=== PATIENT | male | born 1990 | race Caucasian/White ===

== ENCOUNTER 2024-11-17 18:35 | Emergency (ER) | payer OTHER, SELFPAY ==
[2024-11-17] VITALS (32 sets, daily range): BP systolic 124–144; BP diastolic 89–110; PULSE 59–63; TEMP 36.9; O2SAT 96–100; BMI 17.2
--- NOTE | 2024-11-17 19:12 | ED_ITS ---
Documented by User: [email or web address] Rangel 11/17/24 21:50 HPI HPI - General Adult General Chief complaint: Abdominal Pain Stated complaint: ABDOMINAL PAIN, WEAKNESS, TROUBLE EATING Time Seen by Provider: 11/17/24 18:46 Source: patient Mode of arrival: walk-in Limitations: no limitations History of Present Illness HPI narrative: Patient is a 34-year-old male who presents to the emergency department for evaluation of nausea, vomiting, epigastric abdominal discomfort, dizziness and unintentional weight loss for the last 2 to 3 days. He states he has lost over 40 pounds in the last year without intention, he was recently incarcerated. He denies any previous abdominal surgeries. No recent antibiotics or travel. He denies any diarrhea and states he is having normal bowel movements. No fevers. He has had mild cough. No medications taken prior to arrival Related Data Previous Rx's ?Medication ?Instructions ?Recorded ondansetron 4 mg disintegrating 4 mg PO Q6H PRN nausea and 11/17/24 tablet vomiting #12 tabs pantoprazole 40 mg tablet,delayed 40 mg PO DAILY #7 ta bs 11/17/24 release (Protonix) Allergies Allergy/AdvReac Type Severity Reaction Status Date / Time No Known Drug Allergies Allergy Verified 11/17/24 18:55 Opioid HPI Opioid Management Most Recent Opioid Data: Last Pain Scale 5 11/17/24, 19:52 Last ED Pain Assessment 11/17/24, 19:52 Review of Systems ROS Constitutional Denies: fever or chills Ears, nose, mouth, and throat Denies: throat pain or nasal congestion Cardiovascular Denies: chest pain Respiratory Reports: cough; Denies: shortness of breath Gastrointestinal Reports: abdominal pain, nausea and vomiting; Denies: diarrhea Musculoskeletal Denies: back pain Integumentary/Breast Denies: rash Neurological Denies: numbness in extremities or weakness in extremities Hematologic/Lymphatic Denies: easy bruising or easy bleeding PFSH PFSH Social History Little interest or pleasure in doing things: not at all Feeling down, depressed, or hopeless: not at all Exam Narrative Exam Narrative: Gen.: Awake, alert, in no distress Head: Normocephalic, atraumatic ENT: Moist mucous membranes Respiratory: No respiratory distress, lungs clear bilaterally Cardio: Regular rate and rhythm Gastrointestinal: Abdomen is soft, nondistended and nontender to palpation, no guarding or rebound Extremities: Moves extremities equally, no injuries noted Psych: Normal mood and affect Neuro: No focal neuro deficit Skin: Warm, dry, intact Constitutional Vital Signs, click to edit/add: Last Vital Signs Temp 98.5 F 11/17/24 18:56 Pulse 63 11/17/24 22:06 Resp 18 11/17/24 22:06 BP 144/98 H 11/17/24 23:30 Pulse Ox 99 11/17/24 23:40 O2 Del Method Room Air 11/17/24 18:56 Course Vital Signs Vital signs: Vital Signs Temperature 98.5 F 11/17/24 18:56 Pulse Rate 59 L 11/17/24 18:56 Respiratory Rate 18 11/17/24 18:56 Blood Pressure 140/110 H 11/17/24 18:56 Pulse Oximetry 98 11/17/24 18:56 Oxygen Delivery Method Room Air 11/17/24 18:56 Temperature 98.5 F 11/17/24 18:56 Pulse Rate 63 11/17/24 22:06 Respiratory Rate 18 11/17/24 22:06 Blood Pressure 144/98 H 11/17/24 23:30 Pulse Oximetry 99 11/17/24 23:40 Oxygen Delivery Method Room Air 11/17/24 18:56 Medical Decision Making MDM Narrative Medical decision making narrative: 2148: Patient medicated with IV fluids, Zofran, Protonix. Chest x-ray, lab studies and CT of the abdomen and pelvis are unremarkable. Bilirubin was minimally elevated so the patient had an ultrasound of the right upper quadrant. Ultrasound is pending at this time and case is turned over to attending physician anticipating discharge home with PCP and GI referral. SHARED APC VISIT, PHYSICIAN ATTESTATION: [id number] I performed a substantive part of the MDM during the patient?s E/M visit. I personally evaluated and examined the patient. I personally made or approved the documented management plan and acknowledge its risk of complications. Medical Records Medical records reviewed: Yes I reviewed the patient's medical records Lab Data Lab results reviewed: Yes I reviewed the patient's lab results Labs: Lab Results 11/17/24 11/17/24 Range/Units 19:03 21:00 WBC 6.9 (4.0-11.0) 10^3/uL RBC 5.38 (4.70-6.10) 10^6/uL Hgb 16.4 (14.0-18.0) g/dL Hct 46.4 (42.0-54.0) % MCV 86.2 (80.0-94.0) fL MCH 30.5 (25.9-34.0) pg MCHC 35.3 H (29.9-35.2) g/dL RDW 11.7 (11.0-15.0) % Plt Count 303 (150-450) 10^3/uL MPV 8.3 L (9.5-13.5) fL Neut % (Auto) 61.2 (43.0-75.0) % Lymph % (Auto) 30.9 (20.5-60.0) % [place] % (Auto) 6.8 (1.7-12.0) % Eos % (Auto) 0.4 L (0.9-7.0) % Baso % (Auto) 0.6 (0.2-2.0) % Neut # (Auto) 4.2 (1.4-6.5) 10^3/uL Lymph # (Auto) 2.1 (1.2-3.8) 10^3/uL [place] # (Auto) 0.5 (0.3-0.8) 10^3/uL Eos # (Auto) 0.0 (0.0-0.7) 10^3/uL Baso # (Auto) 0.0 (0.0-0.1) 10^3/uL Abs Immat Gran (auto) 0.01 (0.00-0.03) 10^3/uL Imm/Tot Granulo (auto) 0.1 (0.0-0.5) % Sodium 137 (136-145) mmol/L Potassium 3.6 (3.5-5.1) mmol/L Chloride 99 (98-107) mmol/L Carbon Dioxide 31.2 (21.0-32.0) mmol/L Anion Gap 10.4 BUN 10.0 (7.0-18.0) mg/dL Creatinine 0.94 (0.70-1.30) mg/dL Est GFR ( Amer) >60 (>=60 mL/min/1.73m^2) Est GFR (Non-Af Amer) >60 (>=60 mL/min/1.73m^2) BUN/Creatinine Ratio 10.6 Glucose 84 (74-106) mg/dL Lactate 0.7 (0.4-2.0) mmol/L Calcium 9.3 (8.5-10.1) mg/dL Total Bilirubin 1.4 H (0.2-1.0) mg/dL AST 28 (15-37) U/L ALT 54 (16-63) U/L Alkaline Phosphatase 60 (46-116) U/L Troponin I High Sens 9.1 (4.0-76.1) pg/mL Total Protein 7.5 (6.4-8.2) g/dL Albumin 4.5 (3.4-5.0) g/dL Globulin 3.0 g/dL Albumin/Globulin Ratio 1.5 Lipase 26.0 (16.0-77.0) U/L Urine Color Lt. yellow (YELLOW) Urine Clarity Clear (CLEAR) Urine pH 6.5 (5.0-9.0) Ur Specific [place] <=1.005 A (1.005-1.025) Urine Protein Negative (NEG/TRACE) mg/dL Urine Glucose (UA) Negative (NEGATIVE) mg/dL Urine Ketones Negative (NEGATIVE) mg/dL Urine Occult Blood Negative (NEGATIVE) Urine Nitrite Negative (NEGATIVE) Urine Bilirubin Negative (NEGATIVE) Urine Urobilinogen 0.2 (0.2-1.0) EU/dL Ur Leukocyte Esterase Negative (NEGATIVE) Urine RBC None seen (0-2) #/HPF Urine WBC 0-2 A (NONE SEEN) #/HPF Ur Squamous Epith Cells Rare (NONE/RARE) #/LPF Urine Crystals None seen (None Seen) #/HPF Urine Bacteria Trace A (NONE SEEN) #/HPF Urine Casts None seen (NONE SEEN) #/LPF Urine Mucus None seen (NONE SEEN) Ur Culture Indicated? No Imaging Data Chest x-ray: Attestation: I have reviewed the pertinent imaging results. Radiologist's impression: NAD CT scan - abdomen: Attestation: I have reviewed the pertinent imaging results. Radiologist's impression: NAD Discharge Plan Discharge Chief Complaint: Abdominal Pain Clinical Impression: Abdominal pain, Nausea & vomiting, Unintentional weight loss Patient Disposition: Home, Self-Care Time of Disposition Decision: 23:28 Condition: Good Prescriptions / Home Meds: New pantoprazole [Protonix] 40 mg tablet,delayed release (DR/EC) 40 mg PO DAILY Qty: 7 0RF ondansetron 4 mg tablet,disintegrating 4 mg PO Q6H PRN (Reason: nausea and vomiting) Qty: 12 0RF Print Language: Estonian Instructions: Acute Nausea and Vomiting (DC), Acute Abdominal Pain (DC), Abdominal Pain (ED) Referrals: [facility] [Primary Care Provider, Unknown] - 1 week Ly,Hannah Steele DO [Physician] - 1 week Discharge Date/Time: 11/17/24 23:57 Documented by User: Kailey Cazares MD 11/18/24 01:20 HPI HPI - General Adult General Chief complaint: Abdominal Pain Stated complaint: ABDOMINAL PAIN, WEAKNESS, TROUBLE EATING Time Seen by Provider: 11/17/24 18:46 Related Data Previous Rx's ?Medication ?Instructions ?Recorded ondansetron 4 mg disintegrating 4 mg PO Q6H PRN nausea and 11/17/24 tablet vomiting #12 tabs pantoprazole 40 mg tablet,delayed 40 mg PO DAILY #7 ta bs 11/17/24 release (Protonix) Allergies Allergy/AdvReac Type Severity Reaction Status Date / Time No Known Drug Allergies Allergy Verified 11/17/24 18:55 Opioid HPI Opioid Management Most Recent Opioid Data: Last Pain Scale 5 11/17/24, 19:52 Last ED Pain Assessment 11/17/24, 19:52 PFSH PFSH Social History Little interest or pleasure in doing things: not at all Feeling down, depressed, or hopeless: not at all Exam Constitutional Vital Signs, click to edit/add: Last Vital Signs Temp 98.5 F 11/17/24 18:56 Pulse 63 11/17/24 22:06 Resp 18 11/17/24 22:06 BP 144/98 H 11/17/24 23:30 Pulse Ox 99 11/17/24 23:40 O2 Del Method Room Air 11/17/24 18:56 Course Vital Signs Vital signs: Vital Signs Temperature 98.5 F 11/17/24 18:56 Pulse Rate 59 L 11/17/24 18:56 Respiratory Rate 18 11/17/24 18:56 Blood Pressure 140/110 H 11/17/24 18:56 Pulse Oximetry 98 11/17/24 18:56 Oxygen Delivery Method Room Air 11/17/24 18:56 Temperature 98.5 F 11/17/24 18:56 Pulse Rate 63 11/17/24 22:06 Respiratory Rate 18 11/17/24 22:06 Blood Pressure 144/98 H 11/17/24 23:30 Pulse Oximetry 99 11/17/24 23:40 Oxygen Delivery Method Room Air 11/17/24 18:56 Medical Decision Making MDM Narrative Medical decision making narrative: 2148: Patient medicated with IV fluids, Zofran, Protonix. Chest x-ray, lab studies and CT of the abdomen and pelvis are unremarkable. Bilirubin was minimally elevated so the patient had an ultrasound of the right upper quadrant. Ultrasound is pending at this time and case is turned over to attending physician anticipating discharge home with PCP and GI referral. SHARED APC VISIT, PHYSICIAN ATTESTATION: [id number] I performed a substantive part of the MDM during the patient?s E/M visit. I per sonally evaluated and examined the patient. I personally made or approved the documented management plan and acknowledge its risk of complications. This patient was seen and evaluated in conjunction with the physician culture media laboratory assistant. He presents for evaluation of generalized abdominal pain with decreased appetite for solid food and some vomiting. He also complains of weight loss after being in residential. I reviewed his labs. He has a normal white count and hemoglobin. Electrolytes are normal. Liver function tests are normal with the exception of a mildly elevated bilirubin at 1.4. Lipase is normal, troponin is normal. X-ray of the chest is negative for acute findings. CT scan of the abdomen pelvis shows notable fluid-filled nondilated loops of small bowel with nonspecific but may be seen with enteritis and ultrasound of the gallbladder shows a small echogenic focus in the gallbladder that could represent a polyp but no features of cholecystitis no acute process seen in the visualized p ortions of the pancreas right kidney or liver with no free fluid in the right upper quadrant and normal common bile duct. The results of these findings and his labs were discussed with him. He is perplexed as to why he cannot eat any solid food at this time. I did explain to him that he may have a gastroenteritis causing his symptoms as he vomited the last time he ate. He will be given a Zofran to take home and prescriptions for Zofran and Protonix were forwarded to his pharmacy. Lab Data Labs: Lab Results 11/17/24 11/17/24 Range/Units 19:03 21:00 WBC 6.9 (4.0-11.0) 10^3/uL RBC 5.38 (4.70-6.10) 10^6/uL Hgb 16.4 (14.0-18.0) g/dL Hct 46.4 (42.0-54.0) % MCV 86.2 (80.0-94.0) fL MCH 30.5 (25.9-34.0) pg MCHC 35.3 H (29.9-35.2) g/dL RDW 11.7 (11.0-15.0) % Plt Count 303 (150-450) 10^3/uL MPV 8.3 L (9.5-13.5) fL Neut % (Auto) 61.2 (43.0-75.0) % Lymph % (Auto) 30.9 (20.5-60.0) % [place] % (Auto) 6.8 (1.7-12.0) % Eos % (Auto) 0.4 L (0.9-7.0) % Baso % (Auto) 0.6 (0.2-2.0) % Neut # (Auto) 4.2 (1.4-6.5) 10^3/uL Lymph # (Auto) 2.1 (1.2-3.8) 10^3/uL [place] # (Auto) 0.5 (0.3-0.8) 10^3/uL Eos # (Auto) 0.0 (0.0-0.7) 10^3/uL Baso # (Auto) 0.0 (0.0-0.1) 10^3/uL Abs Immat Gran (auto) 0.01 (0.00-0.03) 10^3/uL Imm/Tot Granulo (auto) 0.1 (0.0-0.5) % Sodium 137 (136-145) mmol/L Potassium 3.6 (3.5-5.1) mmol/L Chloride 99 (98-107) mmol/L Carbon Dioxide 31.2 (21.0-32.0) mmol/L Anion Gap 10.4 BUN 10.0 (7.0-18.0) mg/dL Creatinine 0.94 (0.70-1.30) mg/dL Est GFR ( Amer) >60 (>=60 mL/min/1.73m^2) Est GFR (Non-Af Amer) >60 (>=60 mL/min/1.73m^2) BUN/Creatinine Ratio 10.6 Glucose 84 (74-106) mg/dL Lactate 0.7 (0.4-2.0) mmol/L Calcium 9.3 (8.5-10.1) mg/dL Total Bilirubin 1.4 H (0.2-1.0) mg/dL AST 28 (15-37) U/L ALT 54 (16-63) U/L Alkaline Phosphatase 60 (46-116) U/L Troponin I High Sens 9.1 (4.0-76.1) pg/mL Total Protein 7.5 (6.4-8.2) g/dL Albumin 4.5 (3.4-5.0) g/dL Globulin 3.0 g/dL Albumin/Globulin Ratio 1.5 Lipase 26.0 (16.0-77.0) U/L Urine Color Lt. yellow (YELLOW) Urine Clarity Clear (CLEAR) Urine pH 6.5 (5.0-9.0) Ur Specific [place] <=1.005 A (1.005-1.025) Urine Protein Negative (NEG/TRACE) mg/dL Urine Glucose (UA) Negative (NEGATIVE) mg/dL Urine Ketones Negative (NEGATIVE) mg/dL Urine Occult Blood Negative (NEGATIVE) Urine Nitrite Negative (NEGATIVE) Urine Bilirubin Negative (NEGATIVE) Urine Urobilinogen 0.2 (0.2-1.0) EU/dL Ur Leukocyte Esterase Negative (NEGATIVE) Urine RBC None seen (0-2) #/HPF Urine WBC 0-2 A (NONE SEEN) #/HPF Ur Squamous Epith Cells Rare (NONE/RARE) #/LPF Urine Crystals None seen (None Seen) #/HPF Urine Bacteria Trace A (NONE SEEN) #/HPF Urine Casts None seen (NONE SEEN) #/LPF Urine Mucus None seen (NONE SEEN) Ur Culture Indicated? No Discharge Plan Discharge Chief Complaint: Abdominal Pain Clinical Impression: Abdominal pain, Nausea & vomiting, Unintentional weight loss Patient Disposition: Home, Self-Care Time of Disposition Decision: 23:28 Condition: Good Prescriptions / Home Meds: New pantoprazole [Protonix] 40 mg tablet,delayed release (DR/EC) 40 mg PO DAILY Qty: 7 0RF ondansetron 4 mg tablet,disintegrating 4 mg PO Q6H PRN (Reason: nausea and vomiting) Qty: 12 0RF Print Language: Estonian Instructions: Acute Nausea and Vomiting (DC), Acute Abdominal Pain (DC), Abdominal Pain (ED) Referrals: [facility] [Primary Care Provider, Unknown] - 1 week Hannah Giang DO [Physician] - 1 week Discharge Date/Time: 11/17/24 23:57
[2024-11-17] MEDS: 0.9 % SODIUM CHLORIDE 1,000 ML 999 ML IV (19:16)
[2024-11-17 19:17] LABS: Basophils Percent Auto 0.6 % (0.2-2.0); Eosinophils Percent Auto 0.4 % (0.9-7.0); Hematocrit 46.4 % (42.0-54.0); Hemoglobin 16.4 g/dL (14.0-18.0); Immature Granulocytes Abs Auto 0.01 10^3/uL (0.00-0.03); Immature Granulocytes Pct Auto 0.1 % (0.0-0.5); Lymphocytes Absolute Auto 2.1 10^3/uL (1.2-3.8); Lymphocytes Percent Auto 30.9 % (20.5-60.0); Mean Corpuscular HGB Conc 35.3 g/dL (29.9-35.2); Mean Corpuscular Hemoglobin 30.5 pg (25.9-34.0); Mean Corpuscular Volume 86.2 fL (80.0-94.0); Mean Platelet Volume 8.3 fL (9.5-13.5); Monocytes Absolute Auto 0.5 10^3/uL (0.3-0.8); Monocytes Percent Auto 6.8 % (1.7-12.0); Neutrophils Absolute Auto 4.2 10^3/uL (1.4-6.5); Neutrophils Percent Auto 61.2 % (43.0-75.0); Platelet Count 303 10^3/uL (150-450); Red Blood Count 5.38 10^6/uL (4.70-6.10); Red Cell Distribution Width 11.7 % (11.0-15.0); White Blood Count 6.9 10^3/uL (4.0-11.0)
[2024-11-17] MEDS: PANTOPRAZOLE SODIUM 40 MG VIAL IV (19:17)
[2024-11-17] MEDS: HYOSCYAMINE SULFATE 0.125 MG TAB.SUBL SL (19:17)
[2024-11-17] MEDS: ONDANSETRON PF 4 MG/2 ML VIAL IV (19:17)
[2024-11-17 19:34] LABS: Anion Gap 10.4
[2024-11-17 19:36] LABS: Alanine Aminotransferase 54 U/L (16-63); Albumin Globulin Ratio 1.5; Albumin Level 4.5 g/dL (3.4-5.0); Alkaline Phosphatase 60 U/L (46-116); Aspartate Amino Transferase 28 U/L (15-37); BUN Creatinine Ratio 10.6; Bilirubin Total 1.4 mg/dL (0.2-1.0); Calcium 9.3 mg/dL (8.5-10.1); Carbon Dioxide 31.2 mmol/L (21.0-32.0); Chloride 99 mmol/L (98-107); Estimated GFR (African America >60 (>=60 mL/min/1.73m^2); Estimated GFR (Non-African Ame >60 (>=60 mL/min/1.73m^2); Glucose 84 mg/dL (74-106); Lactate/Lactic Acid 0.7 mmol/L (0.4-2.0); Potassium 3.6 mmol/L (3.5-5.1); Sodium 137 mmol/L (136-145); Total Protein 7.5 g/dL (6.4-8.2); Troponin I High Sensitivity 9.1 pg/mL (4.0-76.1)
--- NOTE | 2024-11-17 20:34 | PC.NURSE ---
ultra sound tech in the room with this patient at this time
--- NOTE | 2024-11-17 20:52 | PC.NURSE ---
patient was unable to provide a urine sample
[2024-11-17 21:03] LABS: Bilirubin Urine NEGATIVE (NEGATIVE); Blood Urine NEGATIVE (NEGATIVE); Clarity Urine CLEAR (CLEAR); Color Urine LT. YELLOW (YELLOW); Glucose Urine UA NEGATIVE (NEGATIVE); Ketones Urine NEGATIVE (NEGATIVE); Leukocyte Esterase Urine NEGATIVE (NEGATIVE); Nitrite Urine NEGATIVE (NEGATIVE); Protein Urine NEGATIVE (NEG/TRACE); Specific Gravity Urine <=1.005 (1.005-1.025); Urobilinogen Urine 0.2 EU/dL (0.2-1.0); pH Urine 6.5 (5.0-9.0)
[2024-11-17 21:09] LABS: Bacteria Urine TRACE #/HPF (NONE SEEN); Cast Seen? NONE SEEN #/LPF (NONE SEEN); Crystals Seen? None Seen #/HPF (None Seen); Mucus Urine NONE SEEN (NONE SEEN); RBC Urine NONE SEEN #/HPF (0-2); Squamous Epithelial Cell Urine RARE #/LPF (NONE/RARE); Urine Culture Indicated NO; WBC Urine 0-2 #/HPF (NONE SEEN)
--- NOTE | 2024-11-17 23:11 | PC.NURSE ---
this patient sitting upright on the bed awake and alert looking at his cell phone
[2024-11-17] MEDS: ONDANSETRON 4 MG RAPDIS TABLET SL (23:53)
--- NOTE | 2024-11-17 23:58 | PC.NURSE ---
i gave this patient verbal and written discharge orders and 2 e-scripts and this patient voices yes understanding thee. at time of discharge this patient voices no concerns and shows signs of distress
== END 2024-11-17 23:57 | disposition home or self-care (01) ==
PROVIDERS: Physician Assistant; Emergency Provider Emergency Medicine
DX: R10.13 Epigastric pain (principal); R42 Dizziness and giddiness; R11.2 Nausea with vomiting, unspecified; R63.4 Abnormal weight loss
CPT/HCPCS: 36415; 71046; 74177; 76705; 80053; 81001; 83605; 83690; 84484; 85025; 96361; 96374; 96375; 99285; J2405; Q0162; Q9967

== ENCOUNTER 2024-11-29 19:25 | Emergency (ER) | payer OTHER, SELFPAY ==
[2024-11-29 19:29] VITALS: BP 148/103; PULSE 75; TEMP 37.1; O2SAT 99; BMI 17.2
--- NOTE | 2024-11-29 19:54 | PC.NURSE ---
in to see pt. Pt states that milady has had to leave work quite a few times over the last 2 months
--- NOTE | 2024-11-29 20:04 | ED_ITS ---
HPI - Anxiety General Chief Complaint: Anxiety Stated Complaint: ANXIETY Time Seen by Provider: 11/29/24 19:28 Source: patient Mode of arrival: walk-in Limitations: no limitations History of Present Illness HPI narrative: This 34-year-old male with a history of anxiety who has been a patient at [facility] in the past presents for evaluation of generalized anxiety. He has been on trazodone in the past to help him with sleep but states that that made his anxiety worse. He is not currently seeing a counselor. He states for the past 2 months he has been having increasing anxiety. He has decreased appetite and inability to sleep. He states that this is affecting his work and he has had to leave his job several times or not gone in due to his anxiety. He denies that he is suicidal. He states he feels like everything is closing in on him. He states he does not feel comfortable at work being around people. He denies that he is self-medicating with alcohol or drugs. He states that he was seen at the medical clinic that he goes to and was told that [facility] would call him for an outpatient appointment but he never got the call. Related Data Allergies Allergy/AdvReac Type Severity Reaction Status Date / Time No Known Drug Allergies Allergy Verified 11/29/24 19:43 Review of Systems ROS Status of ROS 10 or more systems reviewed and unremark able except as noted in history and below [facility] Social History Little interest or pleasure in doing things: nearly every day Feeling down, depressed, or hopeless: nearly every day Exam Narrative Exam Narrative: Vital signs and Nursing Notes reviewed: Patient is afebrile with a normal pulse, blood pressure is elevated at 148/103, he is not hypoxic with pulse ox of 99% on room air General: Awake, alert, oriented, no acute distress, lying comfortably on the stretcher HEENT: Normocephalic atraumatic, mucous membranes are moist and pink, eyes are clear, normal conjunctiva, vision is grossly intact, poor dentition in general, no sign of necrotizing gingivitis Neck: Supple, no meningeal signs, no anterior or posterior cervical lymphadenopathy Chest: Lungs are clear to auscultation with good air entry, there is no wheezing rhonchi or rales appreciated no accessory muscle use, patient is speaking in complete sentences-no chest wall tenderness to palpation CVS: Regular rate and rhythm S1-S2, no murmurs rubs or gallops, pulses are brisk and equal bilaterally ABD: Soft, nondistended, nontender, no rebound guarding or rigidity, bowel sounds are normal, no pulsatile masses appreciated Extremities: Moving all extremities, no lower extremity tenderness or swelling noted, negative Homans' sign, pulses are brisk and equal bilaterally Skin: Normal in appearance without rash,pallor, petechiae or purpura Neuro: No focal deficits Psych: Admits to ongoing anxiety, difficulty sleeping and poor p.o. intake denies actual suicidal ideation Constitutional Vital Signs, click to edit/add: Last Vital Signs Temp 98.8 F 11/29/24 19:29 Pulse 75 11/29/24 19:29 Resp 18 11/29/24 19:29 BP 148/103 H 11/29/24 19:29 Pulse Ox 99 11/29/24 19:29 O2 Del Method Room Air 11/29/24 19:29 Course Vital Signs Vital signs: Vital Signs Temperature 98.8 F 11/29/24 19:29 Pulse Rate 75 11/29/24 19:29 Respiratory Rate 18 11/29/24 19:29 Blood Pressure 148/103 H 11/29/24 19:29 Pulse Oximetry 99 11/29/24 19:29 Oxygen Delivery Method Room Air 11/29/24 19:29 Temperature 98.8 F 11/29/24 19:29 Pulse Rate 75 11/29/24 19:29 Respiratory Rate 18 11/29/24 19:29 Blood Pressure 148/103 H 11/29/24 19:29 Pulse Oximetry 99 11/29/24 19:29 Oxygen Delivery Method Room Air 11/29/24 19:29 MDM - Anxiety MDM Narrative Medical decision making narrative: This 34-year-old male with a history of anxiety presents for evaluation of ongoing anxiety for the past several months. He states he is having trouble going to work because he feels closed in. His appetite has been poor and he has not been sleeping well. He has been a patient of [facility] in the past. He was on trazodone in the past for sleep but states that that made his anxiety worse. He denies that he is self-medicating with any drugs or alcohol. He has no suicidal ideation. He states that he saw a provider at the clinic that he goes to and was supposed to be referred to [facility] to get back in touch with his counselor but never got the phone call. He has not called them himself. Medical clearance workup was performed in the emergency department. He has a normal white count and hemoglobin. Electrolytes are normal. He has negative for aspirin and Tylenol. As I doubt he will be emergently transferred at this time I did not do an alcohol or drug tox especially in light of him not admitting to using any illicit substances or self-medicating with alcohol. He does not appear to be under the influence of any mood altering substances and does not appear to be intoxicated. Once his labs were back call was placed to [facility] and they will be calling him tomorrow for an outpatient appt. He will be sent home with a dose of 1mg ativan. Lab Data Labs: Lab Results 11/29/24 Range/Units 20:05 WBC 6.5 (4.0-11.0) 10^3/uL RBC 5.31 (4.70-6.10) 10^6/uL Hgb 16.2 (14.0-18.0) g/dL Hct 46.3 (42.0-54.0) % MCV 87.2 (80.0-94.0) fL MCH 30.5 (25.9-34.0) pg MCHC 35.0 (29.9-35.2) g/dL RDW 11.6 (11.0-15.0) % Plt Count 261 (150-450) 10^3/uL MPV 8.4 L (9.5-13.5) fL Neut % (Auto) 53.6 (43.0-75.0) % Lymph % (Auto) 36.8 (20.5-60.0) % [place] % (Auto) 7.3 (1.7-12.0) % Eos % (Auto) 1.4 (0.9-7.0) % Baso % (Auto) 0.6 (0.2-2.0) % Neut # (Auto) 3.5 (1.4-6.5) 10^3/uL Lymph # (Auto) 2.4 (1.2-3.8) 10^3/uL [place] # (Auto) 0.5 (0.3-0.8) 10^3/uL Eos # (Auto) 0.1 (0.0-0.7) 10^3/uL Baso # (Auto) 0.0 (0.0-0.1) 10^3/uL Abs Immat Gran (auto) 0.02 (0.00-0.03) 10^3/uL Imm/Tot Granulo (auto) 0.3 (0.0-0.5) % Sodium 143 (136-145) mmol/L Potassium 3.8 (3.5-5.1) mmol/L Chloride 106 (98-107) mmol/L Carbon Dioxide 29.7 (21.0-32.0) mmol/L Anion Gap 11.1 BUN 10.0 (7.0-18.0) mg/dL Creatinine 1.00 (0.70-1.30) mg/dL Est GFR ( Amer) >60 (>=60 mL/min/1.73m^2) Est GFR (Non-Af Amer) >60 (>=60 mL/min/1.73m^2) BUN/Creatinine Ratio 10.0 Glucose 86 (74-106) mg/dL Calcium 9.1 (8.5-10.1) mg/dL Total Bilirubin 0.8 (0.2-1.0) mg/dL AST 20 (15-37) U/L ALT 39 (16-63) U/L Alkaline Phosphatase 54 (46-116) U/L Total Protein 6.8 (6.4-8.2) g/dL Albumin 4.0 (3.4-5.0) g/dL Globulin 2.8 g/dL Albumin/Globulin Ratio 1.4 Salicylates 4.1 (<=19.9) mg/dL Acetaminophen <2.0 L (10.0-30.0) ug/mL Discharge Plan Discharge Chief Complaint: Anxiety Clinical Impression: Generalized anxiety disorder with panic attacks Patient Disposition: Home, Self-Care Time of Disposition Decision: 21:13 Condition: Good Print Language: Persian Instructions: Generalized Anxiety Disorder (ED), Panic Disorder (ED) Referrals: Physician,Non-Staff, MD [Primary Care Provider] - 1 week
[2024-11-29 20:09] LABS: Basophils Percent Auto 0.6 % (0.2-2.0); Eosinophils Absolute Auto 0.1 10^3/uL (0.0-0.7); Eosinophils Percent Auto 1.4 % (0.9-7.0); Hematocrit 46.3 % (42.0-54.0); Hemoglobin 16.2 g/dL (14.0-18.0); Immature Granulocytes Abs Auto 0.02 10^3/uL (0.00-0.03); Immature Granulocytes Pct Auto 0.3 % (0.0-0.5); Lymphocytes Absolute Auto 2.4 10^3/uL (1.2-3.8); Lymphocytes Percent Auto 36.8 % (20.5-60.0); Mean Corpuscular Hemoglobin 30.5 pg (25.9-34.0); Mean Corpuscular Volume 87.2 fL (80.0-94.0); Mean Platelet Volume 8.4 fL (9.5-13.5); Monocytes Absolute Auto 0.5 10^3/uL (0.3-0.8); Monocytes Percent Auto 7.3 % (1.7-12.0); Neutrophils Absolute Auto 3.5 10^3/uL (1.4-6.5); Neutrophils Percent Auto 53.6 % (43.0-75.0); Platelet Count 261 10^3/uL (150-450); Red Blood Count 5.31 10^6/uL (4.70-6.10); Red Cell Distribution Width 11.6 % (11.0-15.0); White Blood Count 6.5 10^3/uL (4.0-11.0)
--- NOTE | 2024-11-29 20:14 | PC.NURSE ---
Pt states, I feel like I have to come back to the ER again and again and again because I'm gonna lose my job. I can't find any doctor to accept me. Pt given a list of the production hand and MDs that are accepting new pts.
[2024-11-29 20:24] LABS: Alanine Aminotransferase 39 U/L (16-63); Albumin Globulin Ratio 1.4; Alkaline Phosphatase 54 U/L (46-116); Anion Gap 11.1; Aspartate Amino Transferase 20 U/L (15-37); Bilirubin Total 0.8 mg/dL (0.2-1.0); Calcium 9.1 mg/dL (8.5-10.1); Carbon Dioxide 29.7 mmol/L (21.0-32.0); Chloride 106 mmol/L (98-107); Estimated GFR (African America >60 (>=60 mL/min/1.73m^2); Estimated GFR (Non-African Ame >60 (>=60 mL/min/1.73m^2); Globulin 2.8 g/dL; Glucose 86 mg/dL (74-106); Potassium 3.8 mmol/L (3.5-5.1); Salicylate 4.1 mg/dL (<=19.9); Sodium 143 mmol/L (136-145); Total Protein 6.8 g/dL (6.4-8.2)
[2024-11-29 20:27] LABS: Acetaminophen <2.0 ug/mL (10.0-30.0)
--- NOTE | 2024-11-29 20:50 | PC.NURSE ---
Called [facility] hotline for [facility]. Will call back shortly as [facility] oon a brief break at this time.
--- NOTE | 2024-11-29 21:01 | PC.NURSE ---
[facility] hotline called again. [facility] remains unavailable. Will call back shortly.
== END 2024-11-29 21:25 | disposition home or self-care (01) ==
PROVIDERS: Emergency Provider Emergency Medicine
DX: F41.1 Generalized anxiety disorder (principal); F41.0 Panic disorder [episodic paroxysmal anxiety]
CPT/HCPCS: 36415; 80053; 80179; 80329; 85025; 99283

== ENCOUNTER 2024-12-14 15:16 | Emergency (ER) | payer OTHER, SELFPAY ==
[2024-12-14] VITALS (11 sets, daily range): BP systolic 130–144; BP diastolic 91–103; PULSE 63–86; TEMP 37.2; O2SAT 96–98; BMI 17.2
--- NOTE | 2024-12-14 16:06 | ED_ITS ---
HPI HPI - General Adult General Chief complaint: Anxiety Stated complaint: anxiety Time Seen by Provider: 12/14/24 16:00 Source: patient Mode of arrival: walk-in History of Present Illness HPI narrative: 34-year-old male presents to the emergency department for anxiety. He states his blood pressure is high because he can feel it in his hands. He was here a week ago and behavioral health services was contacted and according to the electronic health record he was supposed to receive a call in the morning for an appointment. He states he did not receive it. He is not suicidal or homicidal. He has been on trazodone in the past but it did not help him. Related Data Previous Rx's ?Medication ?Instructions ?Recorded lorazepam 1 mg tablet (Ativan) 1 mg PO Q8H PRN anxiety 3 days #10 12/14/24 tabs Allergies Allergy/AdvReac Type Severity Reaction Status Date / Time No Known Drug Allergies Allergy Verified 12/14/24 15:27 Opioid HPI Opioid Management Most Recent Opioid Data: Last Pain Scale 5 11/17/24, 19:52 Review of Systems ROS Narrative A ten point review of systems is negative except as noted above. PFSH PFSH Social History Little interest or pleasure in doing things: not at all Feeling down, depressed, or hopeless: not at all Exam Narrative Exam Narrative: Nurses note and vital signs reviewed and patient is not hypoxic. General: The patient appears well and in no apparent distress. Patient is resting comfortably on cart. Skin: Warm, dry, no pallor noted. There is no rash noted. Head: Normocephalic, atraumatic Eye: Normal conjunctiva, no drainage Ears, Nose, Mouth, and Throat: oral mucosa is moist. Nares patent. Cardiovascular: Regular Rate and Rhythm Respiratory: Patient is in no distress, no accessory muscle use, lungs are clear to auscultation, no wheezing, rales or rhonchi Back: non-tender GI: Normal bowel sounds, no tenderness to palpation, no masses appreciated. No rebound, guarding, or rigidity noted. Musculoskeletal: The patient has no evidence of calf tenderness, no pitting edema, symmetrical pulses noted bilaterally Neurological: A&O, normal speech Psychiatric: Cooperative Constitutional Vital Signs, click to edit/add: Last Vital Signs Temp 99.0 F 12/14/24 15:27 Pulse 67 12/14/24 17:00 Resp 21 H 12/14/24 17:00 BP 140/95 H 12/14/24 17:04 Pulse Ox 98 12/14/24 17:00 O2 Del Method Room Air 12/14/24 15:27 Course Vital Signs Vital signs: Vital Signs Temperature 99.0 F 12/14/24 15:27 Pulse Rate 86 12/14/24 15:27 Respiratory Rate 16 12/14/24 15:27 Blood Pressure 144/103 H 12/14/24 15:27 Pulse Oximetry 98 12/14/24 15:27 Oxygen Delivery Method Room Air 12/14/24 15:27 Temperature 99.0 F 12/14/24 15:27 Pulse Rate 67 12/14/24 17:00 Respiratory Rate 21 H 12/14/24 17:00 Blood Pressure 140/95 H 12/14/24 17:04 Pulse Oximetry 98 12/14/24 17:00 Oxygen Delivery Method Room Air 12/14/24 15:27 Medical Decision Making MDM Narrative Medical decision making narrative: His blood pressure improved without intervention. He is being given a prescription for ten 1 mg Ativan tablets but was informed that subsequent prescriptions would need to come from his PCP or psychiatrist. He is being put into touch with [facility]. Treatment diagnosis and follow-up were discussed with the patient. Differential Diagnosis Differential Diagnosis: Anxiety, panic attack Lab Data Lab results reviewed: Yes I reviewed the patient's lab results Labs: Lab Results 12/14/24 Range/Units 16:50 WBC 6.9 (4.0-11.0) 10^3/uL RBC 5.27 (4.70-6.10) 10^6/uL Hgb 16.3 (14.0-18.0) g/dL Hct 45.5 (42.0-54.0) % MCV 86.3 (80.0-94.0) fL MCH 30.9 (25.9-34.0) pg MCHC 35.8 H (29.9-35.2) g/dL RDW 11.7 (11.0-15.0) % Plt Count 257 (150-450) 10^3/uL MPV 8.5 L (9.5-13.5) fL Neut % (Auto) 59.2 (43.0-75.0) % Lymph % (Auto) 31.3 (20.5-60.0) % [place] % (Auto) 7.8 (1.7-12.0) % Eos % (Auto) 1.2 (0.9-7.0) % Baso % (Auto) 0.4 (0.2-2.0) % Neut # (Auto) 4.1 (1.4-6.5) 10^3/uL Lymph # (Auto) 2.2 (1.2-3.8) 10^3/uL [place] # (Auto) 0.5 (0.3-0.8) 10^3/uL Eos # (Auto) 0.1 (0.0-0.7) 10^3/uL Baso # (Auto) 0.0 (0.0-0.1) 10^3/uL Abs Immat Gran (auto) 0.01 (0.00-0.03) 10^3/uL Imm/Tot Granulo (auto) 0.1 (0.0-0.5) % Sodium 143 (136-145) mmol/L Potassium 3.7 (3.5-5.1) mmol/L Chloride 106 (98-107) mmol/L Carbon Dioxide 30.8 (21.0-32.0) mmol/L Anion Gap 9.9 BUN 21.0 H (7.0-18.0) mg/dL Creatinine 0.85 (0.70-1.30) mg/dL Est GFR ( Amer) >60 (>=60 mL/min/1.73m^2) Est GFR (Non-Af Amer) >60 (>=60 mL/min/1.73m^2) BUN/Creatinine Ratio 24.7 Glucose 81 (74-106) mg/dL Calcium 9.3 (8.5-10.1) mg/dL ECG Data Attestation: I personally reviewed and interpreted this ECG as follows: (EKG on my interpretation shows sinus rhythm with a rate of 64 no acute change) Discharge Plan Discharge Chief Complaint: Anxiety Clinical Impression: Anxiety Patient Disposition: Home, Self-Care Time of Disposition Decision: 17:19 Condition: Good Mode of Transportation: Private Vehicle Prescriptions / Home Meds: New lorazepam [Ativan] 1 mg tablet 1 mg PO Q8H PRN (Reason: anxiety) 3 Days Qty: 10 0RF Print Language: Macedonian Instructions: Anxiety (ED) Referrals: Physician,Non-Staff, MD [Primary Care Provider] - 1 week
--- NOTE | 2024-12-14 16:06 | ECG_ITS ---
[facility] Test Date: 2024-12-14 Pat Name: TIFFANIE SAWYER Department: Room: - Gender: Male Therapeutic Dietitian: : 1990 Requested By: 1030 Order Number: [id number] Reading MD: RADHA ORTIZ M.D. Measurements Intervals [place] Rate: 64 P: 71 MN: 148 QRS: 97 QRSD: 92 T: 65 QT: 384 QTc: 394 Interpretive Statements 1100 Sinus rhythm 1470 with occasional supraventricular premature complexes [address]109 ST elevation, probably early repolarization 7102 Moderate right axis deviation 9140 abnormal rhythm ECG Compared to ECG 10/30/2020 03:47:53 Right-axis deviation now present Electronically Signed On 12-14-2024 19:24:49 EDT by RADHA ORTIZ M.D.
[2024-12-14 17:03] LABS: Basophils Percent Auto 0.4 % (0.2-2.0); Eosinophils Absolute Auto 0.1 10^3/uL (0.0-0.7); Eosinophils Percent Auto 1.2 % (0.9-7.0); Hematocrit 45.5 % (42.0-54.0); Hemoglobin 16.3 g/dL (14.0-18.0); Immature Granulocytes Abs Auto 0.01 10^3/uL (0.00-0.03); Immature Granulocytes Pct Auto 0.1 % (0.0-0.5); Lymphocytes Absolute Auto 2.2 10^3/uL (1.2-3.8); Lymphocytes Percent Auto 31.3 % (20.5-60.0); Mean Corpuscular HGB Conc 35.8 g/dL (29.9-35.2); Mean Corpuscular Hemoglobin 30.9 pg (25.9-34.0); Mean Corpuscular Volume 86.3 fL (80.0-94.0); Mean Platelet Volume 8.5 fL (9.5-13.5); Monocytes Absolute Auto 0.5 10^3/uL (0.3-0.8); Monocytes Percent Auto 7.8 % (1.7-12.0); Neutrophils Absolute Auto 4.1 10^3/uL (1.4-6.5); Neutrophils Percent Auto 59.2 % (43.0-75.0); Platelet Count 257 10^3/uL (150-450); Red Blood Count 5.27 10^6/uL (4.70-6.10); Red Cell Distribution Width 11.7 % (11.0-15.0); White Blood Count 6.9 10^3/uL (4.0-11.0)
[2024-12-14 17:09] LABS: Anion Gap 9.9; BUN Creatinine Ratio 24.7; Calcium 9.3 mg/dL (8.5-10.1); Carbon Dioxide 30.8 mmol/L (21.0-32.0); Chloride 106 mmol/L (98-107); Estimated GFR (African America >60 (>=60 mL/min/1.73m^2); Estimated GFR (Non-African Ame >60 (>=60 mL/min/1.73m^2); Glucose 81 mg/dL (74-106); Potassium 3.7 mmol/L (3.5-5.1); Sodium 143 mmol/L (136-145)
== END 2024-12-14 17:56 | disposition home or self-care (01) ==
PROVIDERS: Emergency Provider Emergency Medicine
DX: F41.9 Anxiety disorder, unspecified (principal)
CPT/HCPCS: 36415; 80048; 85025; 93005; 99284

== ENCOUNTER 2024-12-30 02:27 | Emergency (ER) | payer OTHER, SELFPAY ==
[2024-12-30] VITALS (43 sets, daily range): BP systolic 88–112; BP diastolic 46–71; PULSE 73–99; TEMP 36.1; O2SAT 88–99
--- OUTSIDE RECORDS SUMMARY | 2024-12-30 02:38 | XMS_ITS | Clinical Summary ---
Author Organization [employer] [facility] Address [id number] [address] [place] [address] Care Team Providers Care Storekeeper Helper Name Role Phone Services, [facility] Primary Care Provider Allergies No known active allergies Medications No known medications Social History Tobacco Use Types Packs/Day Years Used Date Smoking Tobacco: Former Pipe Smokeless Tobacco: Never Tobacco Cessation:Counseling Given: Not Answered Alcohol Use Standard Drinks/Week Comments Not Currently 0 (1 standard drink = 0.6 oz pur e alcohol) occasioanlly Childcare Answer Date Recorded Childcare Unknown 12/22/2018 Employment Answer Date Recorded Employment Unknown 12/22/2018 Hunger Screening Answer Date Recorded Within the past 12 months we worried whether our food would run out before we got money to buy more. Never True 04/17/2023 Within the past 12 months th e food we bought just didn't last and we didn't have money to get more. Never True 04/17/2023 Purpose - Life Answer Date Recorded Purpose and direction in life Unknown Sex and Gender Information Value Date Recorded Sex Assigned at Not on file Legal Sex Male 11:47 AM EDT Gender Identity Not on file Sexual Orientation Not on file Last Filed Vital Signs Vital Sign Reading Time Taken Comments Blood Pressure 149/92 04/17/2023 6:38 PM EDT Pulse 65 04/17/2023 6:38 PM EDT Temperature 36.7 C (98 F) 04/17/2023 6:38 PM EDT Respiratory Rate 16 04/17/2023 6:38 PM EDT Oxygen Saturation 99% 04/17/2023 6:38 PM EDT Inhaled Oxygen Concentration - - Weight 61.2 kg (135 lb) 04/17/2023 6:38 PM EDT Height 177.8 cm (5' 10 ) 04/17/2023 6:38 PM EDT Body Mass Index 19.37 04/17/2023 6:38 PM EDT Plan of Treatment Health Maintenance Due Date Last Done Comments Depression Screening 2004 DTaP,Tdap and Td Vaccines (6 - Tdap) 11/22/2014 11/22/2004, 04/08/1994, 1992, Additional history exists Adult BMI Screening 04/17/2024 04/17/2023 Tobacco Screening 04/17/2024 04/17/2023 Influenza Vaccine 03/13/2025 Medical Devices Not on file Insurance [employer] Care Teams Storekeeper Helper Relationship Specialty Start Date End Date Services, [facility] [address] [place] PCP - General Family Medicine 10/01/22
[2024-12-30 03:10] LABS: Basophils Absolute Auto 0.1 10^3/uL (0.0-0.1); Basophils Percent Auto 0.7 % (0.2-2.0); Eosinophils Absolute Auto 0.1 10^3/uL (0.0-0.7); Eosinophils Percent Auto 1.1 % (0.9-7.0); Hemoglobin 14.3 g/dL (14.0-18.0); Immature Granulocytes Abs Auto 0.01 10^3/uL (0.00-0.03); Immature Granulocytes Pct Auto 0.1 % (0.0-0.5); Lymphocytes Absolute Auto 2.1 10^3/uL (1.2-3.8); Lymphocytes Percent Auto 29.4 % (20.5-60.0); Mean Corpuscular HGB Conc 34.9 g/dL (29.9-35.2); Mean Corpuscular Hemoglobin 30.8 pg (25.9-34.0); Mean Corpuscular Volume 88.4 fL (80.0-94.0); Mean Platelet Volume 8.5 fL (9.5-13.5); Monocytes Absolute Auto 0.5 10^3/uL (0.3-0.8); Monocytes Percent Auto 6.8 % (1.7-12.0); Neutrophils Absolute Auto 4.4 10^3/uL (1.4-6.5); Neutrophils Percent Auto 61.9 % (43.0-75.0); Platelet Count 237 10^3/uL (150-450); Red Blood Count 4.64 10^6/uL (4.70-6.10); Red Cell Distribution Width 11.8 % (11.0-15.0); White Blood Count 7.1 10^3/uL (4.0-11.0)
[2024-12-30 03:24] LABS: Ethanol 286 mg/dL; Salicylate <2.8 mg/dL (<=19.9)
[2024-12-30 03:39] LABS: Acetaminophen <2.0 ug/mL (10.0-30.0)
[2024-12-30 04:29] LABS: Phenytoin Dilantin <0.5 ug/mL (10.0-20.0)
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
[2024-12-30 06:26] LABS: BUN Creatinine Ratio 22.1; Calcium 8.5 mg/dL (8.5-10.1); Carbon Dioxide 23.1 mmol/L (21.0-32.0); Chloride 110 mmol/L (98-107); Estimated GFR (African America >60 (>=60 mL/min/1.73m^2); Estimated GFR (Non-African Ame >60 (>=60 mL/min/1.73m^2); Glucose 97 mg/dL (74-106); Potassium 3.1 mmol/L (3.5-5.1); Sodium 149 mmol/L (136-145)
[2024-12-31 05:12] LABS: Lithium (Eskalith(R)), Serum <0.1 mmol/L (0.5-1.2)
[2024-12-31 09:08] LABS: Phenobarbital, Serum <3 ug/mL (15-40)
== END 2024-12-30 08:44 | disposition home or self-care (01) ==
PROVIDERS: Emergency Provider Emergency Medicine; PCP Family Medicine
DX: R41.82 Altered mental status, unspecified (principal); F10.221 Alcohol dependence with intoxication delirium
CPT/HCPCS: 36415; 70450; 80048; 80178; 80179; 80184; 80185; 80320; 80329; 85025; 99285

== ENCOUNTER 2025-04-15 18:03 | Emergency (ER) | payer OTHER, SELFPAY ==
[2025-04-15 18:07] VITALS: BP 135/115; PULSE 114; TEMP 37.9; O2SAT 97; BMI 20.8
[2025-04-15] MEDS: DIPHTH,PERTUSS(ACELL),TET VAC 0.5 ML SYRINGE IM (18:16)
[2025-04-15 18:19] VITALS: PULSE 122
[2025-04-15 18:24] VITALS: PULSE 114
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
== END 2025-04-15 18:26 ==
LOC: ER 18:21
PROVIDERS: Emergency Provider Emergency Medicine; PCP Family Medicine
DX: Z02.89 Encounter for other administrative examinations (principal); S20.309A Unspecified superficial injuries of unspecified front wall of thorax, initial encounter; X58.XXXA Exposure to other specified factors, initial encounter; Z23 Encounter for immunization
CPT/HCPCS: 90471; 90715; 99284